=== PATIENT | male | born 1950 | race African-American/Black ===

== ENCOUNTER 2019-03-29 17:25 | Emergency (ER) | payer MEDICARE | END 2019-03-29 18:05 | disposition home or self-care (01) | LOC: SCSEKG 17:25 → SCSER 18:05 | DX: M70.22 Olecranon bursitis, left elbow (principal) | CPT/HCPCS: 99283 ==

== ENCOUNTER 2021-10-27 16:49 | Emergency (ER) | payer OTHER, MEDICARE ==
[2021-10-27] MEDS ORDERED: Xylocaine 1% w/ Epi 1:100K 10 ML VIAL ONE (18:41)
== END 2021-10-27 19:25 | disposition home or self-care (01) ==
LOC: ERS 16:49
DX: S80.11XA Contusion of right lower leg, initial encounter (principal); W01.10XA Fall on same level from slipping, tripping and stumbling with subsequent striking against unspecified object, initial encounter
CPT/HCPCS: 10060

== ENCOUNTER 2024-01-22 09:43 | Outpatient (CLI) | payer MEDICARE | END 2024-01-22 09:44 | disposition home or self-care (01) | LOC: CT 09:43 | PROVIDERS: ATTEND Urology | DX: C61 Malignant neoplasm of prostate (principal); R31.29 Other microscopic hematuria; N28.9 Disorder of kidney and ureter, unspecified; Z90.5 Acquired absence of kidney | CPT/HCPCS: 74176 ==